=== PATIENT | female | born 1955 | race Caucasian/White ===

== ENCOUNTER → 2025-01-25 | Outpatient (CLI) | payer MEDICARE, OTHER ==
[~2025-01-25] MED LIST: ACCUNEB 0.1.25 MG/3 INH; ALBUTEROL0.09 MG/A1 INH; ALDACTONE25 M1 PO; ASPIRIN325 M2 PO; BENRALIZUMAB 30 MG/ML SYRINGE SQ SCH; COREG12.5 MG PO; COREG25 MG PO; EPLERENONE25 MG PO; LASIX20 MG PO; LEVAQUIN750 MG PO; LISINOPRIL20 MG PO; MUCINEX600 MG PO; NEBULIZER; OYSTER SHELL C500 M3 PO; OYSTER SHELL CA PO; PRAVACHOL40 MG PO; PREDNISONE10 MG PO; PREVACID15 MG PO; PREVACID30 M1 PO; SINGULAIR10 MG PO; SPIRIVA18 MCG PO; SYMBICORT1 AE1 INH; SYNTHROID,LEV200 MCG PO; SYNTHROID0.175 MG PO; VENTOLIN 02.5 MG/3 M INH; ZESTRIL,PRINIVI20 MG PO; [UNRECOGNIZED DRUG - REMARK] PO
[2025-01-25 09:35] VITALS: BP 160/73
== END | disposition home or self-care (01) ==
LOC: INJECTION 01-24 09:00
PROVIDERS: ATTEND Internal Medicine
DX: J45.50 Severe persistent asthma, uncomplicated (principal)

== ENCOUNTER → 2025-03-22 | Outpatient (CLI) | payer MEDICARE, OTHER ==
[~2025-03-22] MED LIST changes: +AMLODIPINE BESYL5 MG PO; +BENRALIZUMAB 30 MG/ML SYRINGE SQ ONE; -BENRALIZUMAB 30 MG/ML SYRINGE SQ SCH; +MAGNESIUM400 MG PO
[2025-03-22 08:45] VITALS: BP 153/59
== END | disposition home or self-care (01) ==
LOC: INJECTION 08:39
PROVIDERS: ATTEND Internal Medicine
DX: J45.50 Severe persistent asthma, uncomplicated (principal); I10 Essential (primary) hypertension; E78.00 Pure hypercholesterolemia, unspecified